=== PATIENT | female | born 1955 | race Caucasian/White ===

== ENCOUNTER 2018-02-14 20:55 | Inpatient (IN) | payer MEDICAID ==
[~2018-02-14] VITALS: Ht 154.9 cm; Wt 61.3 kg
[2018-02-14] MEDS ORDERED: IBUP-2070 PO (21:06)
[2018-02-14] MEDS ORDERED: CLIN300C3 PO (21:06)
[2018-02-14] MEDS ORDERED: CIPR-278 PO (21:06)
[2018-02-14] MEDS ORDERED: FAMO20 PO (21:06)
[2018-02-14 22:21] LABS: BASOPHILS % (AUTO) 0.8 % (0.0-2.0); EOSINOPHILS % (AUTO) 0 % (1.0-6.0); HEMOGLOBIN 11.6 g/dL (12.0-16.0); LYMPHOCYTES # (AUTO) 1.5 K/uL (1.0-4.8); LYMPHOCYTES % (AUTO) 11.9 % (22.0-44.0); MEAN CORPUSCULAR HEMOGLOBIN 29.2 pg (26.0-34.0); MEAN CORPUSCULAR HGB CONC 34.2 G/dL (31.0-37.0); MEAN CORPUSCULAR VOLUME 85 fL (80-100); MONOCYTES # (AUTO) 0.7 K/uL (0.1-1.0); MONOCYTES % (AUTO) 5.6 % (2.0-9.0); NEUTROPHILS % (AUTO) 81.7 % (40.0-70.0); PLATELET COUNT (AUTO) 257 K/uL (150-450); RED BLOOD CELL COUNT(AUTO) 3.98 MIL/uL (4.00-5.20); RED CELL DISTRIBUTION WIDTH 13.9 % (11.5-14.5)
[2018-02-14 22:41] LABS: ANION GAP 9 mmol/L (8-16); CALCIUM, TOTAL 8.3 mg/dL (8.8-10.5); CARBON DIOXIDE 26 mmol/L (22-29); CHLORIDE 100 mmol/L (98-107); CREATININE 0.58 mg/dL (0.60-1.30); GLOMERULAR FILTR. RATE CALC > 60 mL/min (>60); GLUCOSE,RANDOM 169 mg/dL (70-110); POTASSIUM 3.9 mmol/L (3.5-5.1); SODIUM SERUM 135 mmol/L (136-145); UREA NITROGEN, BLOOD 15 mg/dL (7-18)
[2018-02-14 22:53] LABS: ALANINE AMINOTRANSFERASE 26 U/L (12-78); ALKALINE PHOSPHATASE 83 U/L (46-116); ASPARTATE AMINOTRANSFERASE 17 U/L (15-37); BILIRUBIN,TOTAL 0.3 mg/dL (0.1-1.0); LIPASE 103 U/L (73-393)
[2018-02-14] MEDS ORDERED: ONDANSETRON HCL 4 MG/2 ML VIAL IVP ONE (23:00)
[2018-02-14] MEDS ORDERED: SODIUM CHLORIDE 0.9% 1,000 ML IV ONE (23:00)
[2018-02-14] MEDS ORDERED: FentaNYL CITRATE-PF 100 MCG/2 ML VIAL IVP ONE (23:00)
[2018-02-15] MEDS ORDERED: BUPIVACAINE HCL/PF 0.25% 10 ML VIAL INJ ONE
[2018-02-15] MEDS ORDERED: FentaNYL CITRATE-PF 100 MCG/2 ML VIAL IVP ONE (00:30)
[2018-02-15 01:16] LABS: GLUCOSE, CSF 60 mg/dL (50-80); TOTAL PROTEIN, CSF 72 mg/dL (15-45)
[2018-02-15 01:56] LABS: CSF TUBE NUMBER 1
[2018-02-15 01:57] LABS: APPEARANCE,CSF SL CLOUDY (CLEAR); APPEARANCE2,CSF SL CLOUDY (CLEAR); COLOR,CSF COLORLESS (COLORLESS); CSF 2ND TUBE NUMBER 4; RED BLOOD CELL1,CSF 448.8 CMM (0-0); WHITE BLOOD CELL1,CSF 827.5 CMM (0-5)
[2018-02-15 01:58] LABS: COLOR2,CSF COLORLESS (COLORLESS); RED BLOOD CELL2,CSF 393.8 CMM (0-0)
[2018-02-15] MEDS ORDERED: VANCOMYCIN HCL 1 GM/D5% WATER 200 ML IV ONE ×2 (02:15→08:45)
[2018-02-15] MEDS ORDERED: CefTRIAXone SODIUM 2 GM in DEXTROSE 5%-WATER 20 ML IV ONE (02:15)
[2018-02-15] MEDS ORDERED: DEXAMETHASONE SOD PHOS 4 MG/ML 5 ML VIAL IVP ONE (02:15)
[2018-02-15 02:26] LABS: LYMPHOCYTES1,CSF 38 %; LYMPHOCYTES2,CSF 41 %; MONOCYTES1,CSF 7 %; MONOCYTES2,CSF 10 %; NEUTROPHILS1,CSF 55 %; NEUTROPHILS2,CSF 49 %; OTHER CELLS,CSF 2ND 0
[2018-02-15] MEDS ORDERED: ONDANSETRON HCL 4 MG/2 ML VIAL IVP ONE ×2 (02:45)
[2018-02-15 02:59] LABS: APPEARANCE,URINE CLEAR (CLEAR); BILIRUBIN,URINE NEGATIVE (NEGATIVE); GLUCOSE, URINE (UA) NEGATIVE (NEGATIVE); KETONES,URINE NEGATIVE (NEGATIVE); LEUKOCYTE ESTERASE ,URINE TRACE (NEGATIVE); NITRATE,URINE NEGATIVE (NEGATIVE); OCCULT BLOOD,URINE SMALL (NEGATIVE); PROTEIN,URINE TRACE (NEGATIVE); UROBILINOGEN,URINE 0.2 mg/dL (<=1.0)
[2018-02-15 03:26] LABS: BACTERIA,URINE Moderate /HPF (None Seen); SQUAMOUS EPITHELIAL CELL,UR Few /LPF (None Seen)
[2018-02-15] MEDS ORDERED: WATER IV ONE (03:30)
[2018-02-15] MEDS ORDERED: DEXTROSE 5% IV ONE (03:30)
[2018-02-15] MEDS ORDERED: ACYCLOVIR IV ONE (03:30)
[2018-02-15] MEDS ORDERED: SODIUM CHLORIDE 0.9% 2,000 ML IV ONE (03:30)
[2018-02-15] MEDS ORDERED: ACETAMINOPHEN 500 MG TABLET PO ONE (03:45)
[2018-02-15] MEDS ORDERED: MORPHINE SULFATE 2 MG/ML SYRINGE IVP PRN (06:15)
[2018-02-15] MEDS ORDERED: HYDROCODONE/ACETAMINOPHEN 5-325 MG TABLET PO PRN (06:15)
[2018-02-15] MEDS ORDERED: BISACODYL 10 MG RECTAL RECTAL SUPPOSITORY PR PRN (06:15)
[2018-02-15] MEDS ORDERED: ZOLPIDEM TARTRATE 5 MG TABLET PO PRN (06:15)
[2018-02-15] MEDS ORDERED: MAGNESIUM HYDROXIDE SUSPENSION 30 ML UDCUP PO PRN (06:15)
[2018-02-15] MEDS ORDERED: ACETAMINOPHEN 325 MG TABLET PO PRN (06:15)
[2018-02-15 06:51] VITALS: BP 112/68
[2018-02-15 07:56] VITALS: BP 115/58
[2018-02-15] MEDS ORDERED: VANCOMYCIN HCL 500 MG in DEXTROSE 5%-WATER 100 ML IV ONE (08:30)
[2018-02-15] MEDS: HEPARIN SODIUM,PORCINE 5,000 UNITS/ML VIAL SQ SCH ×3 (08:35→23:47)
[2018-02-15] MEDS: PANTOPRAZOLE SODIUM 40 MG DR TABLET PO SCH (08:35)
[2018-02-15] MEDS: DOCUSATE SODIUM 100 MG CAPSULE PO SCH ×2 (08:35→19:49)
[2018-02-15] MEDS ORDERED: INFLUENZA VIRUS VACCINE QVS 2017-18 (3YR+)/PF 60 MCG/0.5 ML SYRINGE IM ONE (11:30)
[2018-02-15 12:07] VITALS: BP 103/53
[2018-02-15 16:03] VITALS: BP 130/67
[2018-02-15] MEDS ORDERED: WATER IV SCH (17:00)
[2018-02-15] MEDS ORDERED: DEXTROSE 5% IV SCH (17:00)
[2018-02-15] MEDS ORDERED: ACYCLOVIR IV SCH (17:00)
[2018-02-15] MEDS: VANCOMYCIN HCL 1.5 GM in DEXTROSE 5%-WATER 250 ML IV SCH (19:50)
[2018-02-15 20:39] VITALS: BP 120/62
[2018-02-15] MEDS ORDERED: CEFEPIME HCL 2 GM in DEXTROSE 5%-WATER 20 ML IV SCH (21:15)
[2018-02-15] MEDS ORDERED: CefTRIAXone SODIUM 2 GM in DEXTROSE 5%-WATER 20 ML IV SCH (21:15)
[2018-02-15] MEDS: DEXAMETHASONE SOD PHOS 4 MG/ML VIAL IVP SCH ×2 (23:11→23:50)
[2018-02-16] VITALS (7 sets, daily range): BP systolic 115–130; BP diastolic 55–78
[2018-02-16] MEDS ORDERED: ACYCLOVIR 600 MG in DEXTROSE 5%-WATER 100 ML IV SCH ×2
[2018-02-16] MEDS: MetroNIDAZOLE 500 MG/NACL 100 ML IV SCH ×4 (00:17→17:38)
[2018-02-16] MEDS ORDERED: CefTRIAXone SODIUM 1 GM in DEXTROSE 5%-WATER 10 ML IV SCH (03:00)
[2018-02-16] MEDS: DEXAMETHASONE SOD PHOS 4 MG/ML VIAL IVP SCH ×2 (05:50→13:36)
[2018-02-16 06:17] LABS: ANION GAP 10 mmol/L (8-16); CALCIUM, TOTAL 8.4 mg/dL (8.8-10.5); CARBON DIOXIDE 24 mmol/L (22-29); CHLORIDE 104 mmol/L (98-107); CREATININE 0.59 mg/dL (0.60-1.30); GLOMERULAR FILTR. RATE CALC > 60 mL/min (>60); GLUCOSE,RANDOM 204 mg/dL (70-110); SODIUM SERUM 138 mmol/L (136-145); UREA NITROGEN, BLOOD 11 mg/dL (7-18)
[2018-02-16 06:20] LABS: BASOPHILS % (AUTO) 0.5 % (0.0-2.0); EOSINOPHILS % (AUTO) 0 % (1.0-6.0); HEMATOCRIT 34.5 % (36-46); HEMOGLOBIN 11.7 g/dL (12.0-16.0); LYMPHOCYTES # (AUTO) 1.3 K/uL (1.0-4.8); LYMPHOCYTES % (AUTO) 11.8 % (22.0-44.0); MEAN CORPUSCULAR HGB CONC 33.9 G/dL (31.0-37.0); MEAN CORPUSCULAR VOLUME 86 fL (80-100); MONOCYTES # (AUTO) 0.2 K/uL (0.1-1.0); MONOCYTES % (AUTO) 2.2 % (2.0-9.0); NEUTROPHILS # (AUTO) 9.2 K/uL (1.8-7.7); PLATELET COUNT (AUTO) 290 K/uL (150-450); RED BLOOD CELL COUNT(AUTO) 4.03 MIL/uL (4.00-5.20); RED CELL DISTRIBUTION WIDTH 13.9 % (11.5-14.5)
[2018-02-16 06:50] LABS: NEUTROPHILS % (AUTO) 85.5 % (40.0-70.0)
[2018-02-16] MEDS: CefTAZidime PENTAHYDRATE 2 GM in DEXTROSE 5%-WATER 50 ML IV SCH ×3 (06:59→23:07)
[2018-02-16] MEDS ORDERED: GADOBUTROL 1 MMOL/ML 10 ML VIAL IVP ONE (08:38)
[2018-02-16] MEDS: VANCOMYCIN HCL 1.5 GM in DEXTROSE 5%-WATER 250 ML IV SCH ×2 (09:12→20:21)
[2018-02-16] MEDS: PANTOPRAZOLE SODIUM 40 MG DR TABLET PO SCH (09:13)
[2018-02-16] MEDS: HEPARIN SODIUM,PORCINE 5,000 UNITS/ML VIAL SQ SCH ×2 (09:13→16:27)
[2018-02-16] MEDS: DOCUSATE SODIUM 100 MG CAPSULE PO SCH ×2 (09:13→20:22)
[2018-02-17] MEDS: HEPARIN SODIUM,PORCINE 5,000 UNITS/ML VIAL SQ SCH ×4 (00:28→23:40)
[2018-02-17] MEDS: MetroNIDAZOLE 500 MG/NACL 100 ML IV SCH ×5 (00:28→23:36)
[2018-02-17 04:46] VITALS: BP 135/65
[2018-02-17 06:50] LABS: BASOPHILS % (AUTO) 0.4 % (0.0-2.0); EOSINOPHILS % (AUTO) 0.1 % (1.0-6.0); HEMATOCRIT 33.5 % (36-46); HEMOGLOBIN 11.4 g/dL (12.0-16.0); LYMPHOCYTES # (AUTO) 2.5 K/uL (1.0-4.8); LYMPHOCYTES % (AUTO) 20.1 % (22.0-44.0); MEAN CORPUSCULAR HEMOGLOBIN 29.2 pg (26.0-34.0); MEAN CORPUSCULAR HGB CONC 34.1 G/dL (31.0-37.0); MEAN CORPUSCULAR VOLUME 86 fL (80-100); MONOCYTES # (AUTO) 0.9 K/uL (0.1-1.0); MONOCYTES % (AUTO) 6.9 % (2.0-9.0); NEUTROPHILS % (AUTO) 72.5 % (40.0-70.0); PLATELET COUNT (AUTO) 333 K/uL (150-450); RED BLOOD CELL COUNT(AUTO) 3.91 MIL/uL (4.00-5.20); RED CELL DISTRIBUTION WIDTH 13.5 % (11.5-14.5)
[2018-02-17 07:03] LABS: ANION GAP 9 mmol/L (8-16); CALCIUM, TOTAL 8.5 mg/dL (8.8-10.5); CARBON DIOXIDE 26 mmol/L (22-29); CHLORIDE 103 mmol/L (98-107); GLOMERULAR FILTR. RATE CALC > 60 mL/min (>60); GLUCOSE,RANDOM 179 mg/dL (70-110); POTASSIUM 3.7 mmol/L (3.5-5.1); SODIUM SERUM 138 mmol/L (136-145); UREA NITROGEN, BLOOD 14 mg/dL (7-18); VANCOMYCIN,RANDOM 14.5 mcg/mL (25.0-50.0)
[2018-02-17] MEDS: CefTAZidime PENTAHYDRATE 2 GM in DEXTROSE 5%-WATER 50 ML IV SCH ×3 (07:14→22:34)
[2018-02-17 07:54] VITALS: BP 128/63
[2018-02-17] MEDS: PANTOPRAZOLE SODIUM 40 MG DR TABLET PO SCH (08:17)
[2018-02-17] MEDS: DOCUSATE SODIUM 100 MG CAPSULE PO SCH ×2 (08:24→20:35)
[2018-02-17] MEDS ORDERED: VANCOMYCIN HCL 1.5 GM in DEXTROSE 5%-WATER 250 ML IV ONE (10:00)
[2018-02-17] MEDS ORDERED: SODIUM CHLORIDE 0.9% 250 ML IV ONE (10:52)
[2018-02-17 11:00] VITALS: BP 124/62
[2018-02-17 15:55] VITALS: BP 122/63
[2018-02-17] MEDS: ONDANSETRON HCL 4 MG/2 ML VIAL IVP PRN (18:25)
[2018-02-17] MEDS: VANCOMYCIN HCL 1.5 GM in DEXTROSE 5%-WATER 250 ML IV SCH (19:39)
[2018-02-17 19:48] VITALS: BP 125/78
[2018-02-17 23:30] VITALS: BP 120/73
[2018-02-18] MEDS: VANCOMYCIN HCL 1.5 GM in DEXTROSE 5%-WATER 250 ML IV SCH ×3 (00:32→15:28)
[2018-02-18] MEDS: MetroNIDAZOLE 500 MG/NACL 100 ML IV SCH ×4 (05:23→23:52)
[2018-02-18 05:39] VITALS: BP 124/53
[2018-02-18] MEDS: ONDANSETRON HCL 4 MG/2 ML VIAL IVP PRN (06:13)
[2018-02-18] MEDS: CefTAZidime PENTAHYDRATE 2 GM in DEXTROSE 5%-WATER 50 ML IV SCH ×3 (06:41→23:07)
[2018-02-18 06:45] LABS: EOSINOPHILS % (AUTO) 0.9 % (1.0-6.0); HEMATOCRIT 38.5 % (36-46); HEMOGLOBIN 12.8 g/dL (12.0-16.0); LYMPHOCYTES # (AUTO) 4.1 K/uL (1.0-4.8); LYMPHOCYTES % (AUTO) 42.7 % (22.0-44.0); MEAN CORPUSCULAR HEMOGLOBIN 28.6 pg (26.0-34.0); MEAN CORPUSCULAR HGB CONC 33.4 G/dL (31.0-37.0); MEAN CORPUSCULAR VOLUME 86 fL (80-100); MONOCYTES # (AUTO) 0.7 K/uL (0.1-1.0); MONOCYTES % (AUTO) 7.2 % (2.0-9.0); NEUTROPHILS # (AUTO) 4.6 K/uL (1.8-7.7); NEUTROPHILS % (AUTO) 48.2 % (40.0-70.0); PLATELET COUNT (AUTO) 384 K/uL (150-450); RED CELL DISTRIBUTION WIDTH 13.8 % (11.5-14.5)
[2018-02-18 07:11] LABS: ANION GAP 11 mmol/L (8-16); CALCIUM, TOTAL 8.6 mg/dL (8.8-10.5); CARBON DIOXIDE 28 mmol/L (22-29); CHLORIDE 99 mmol/L (98-107); CREATININE 0.62 mg/dL (0.60-1.30); GLOMERULAR FILTR. RATE CALC > 60 mL/min (>60); GLUCOSE,RANDOM 128 mg/dL (70-110); POTASSIUM 3.1 mmol/L (3.5-5.1); SODIUM SERUM 138 mmol/L (136-145); UREA NITROGEN, BLOOD 11 mg/dL (7-18)
[2018-02-18] MEDS: HEPARIN SODIUM,PORCINE 5,000 UNITS/ML VIAL SQ SCH ×2 (08:06→15:28)
[2018-02-18] MEDS: DOCUSATE SODIUM 100 MG CAPSULE PO SCH ×2 (08:07→20:16)
[2018-02-18] MEDS: PANTOPRAZOLE SODIUM 40 MG DR TABLET PO SCH (08:07)
[2018-02-18 10:10] LABS: ORGANISM ID Not indicated.; S PNEUMO SOURCE Urine; STREP PNEUMONIAE AG URINE Negative (Negative); STREP.PNEUMO BODY FLUID CULT. Not Indicated
[2018-02-18] MEDS ORDERED: POTASSIUM CHL 10 MEQ/WATER 50 ML IV PRN (11:45)
[2018-02-18] MEDS ORDERED: POTASSIUM CHLORIDE 20 MEQ ER TABLET PO PRN (11:45)
[2018-02-18 16:15] VITALS: BP 118/57
[2018-02-18 17:16] LABS: HERPES SIMPLEX VIRUS-1 BY PCR Negative (Negative); HERPES SIMPLEX VIRUS-2 BY PCR Negative (Negative)
[2018-02-18 19:05] VITALS: BP 109/57
[2018-02-18 23:35] VITALS: BP 112/51
[2018-02-18] MEDS ORDERED: SODIUM CHLORIDE 0.9% 500 ML IV ONE (23:49)
[2018-02-19] MEDS: HEPARIN SODIUM,PORCINE 5,000 UNITS/ML VIAL SQ SCH ×4 (00:08→23:19)
[2018-02-19] MEDS: VANCOMYCIN HCL 1.5 GM in DEXTROSE 5%-WATER 250 ML IV SCH ×2 (01:03→07:54)
[2018-02-19 03:40] VITALS: BP 119/54
[2018-02-19] MEDS: MetroNIDAZOLE 500 MG/NACL 100 ML IV SCH ×4 (05:44→23:19)
[2018-02-19 06:07] LABS: ANION GAP 10 mmol/L (8-16); CALCIUM, TOTAL 8.3 mg/dL (8.8-10.5); CARBON DIOXIDE 26 mmol/L (22-29); CHLORIDE 99 mmol/L (98-107); CREATININE 0.78 mg/dL (0.60-1.30); GLOMERULAR FILTR. RATE CALC > 60 mL/min (>60); GLUCOSE,RANDOM 159 mg/dL (70-110); POTASSIUM 3.5 mmol/L (3.5-5.1); SODIUM SERUM 135 mmol/L (136-145); UREA NITROGEN, BLOOD 12 mg/dL (7-18); VANCOMYCIN,RANDOM 43.9 mcg/mL (25.0-50.0)
[2018-02-19] MEDS: CefTAZidime PENTAHYDRATE 2 GM in DEXTROSE 5%-WATER 50 ML IV SCH ×3 (06:27→22:36)
[2018-02-19 07:00] VITALS: BP 120/71
[2018-02-19] MEDS: PANTOPRAZOLE SODIUM 40 MG DR TABLET PO SCH (07:54)
[2018-02-19] MEDS: DOCUSATE SODIUM 100 MG CAPSULE PO SCH ×2 (07:54→20:04)
[2018-02-19 11:38] VITALS: BP 132/73
[2018-02-19 15:00] VITALS: BP 115/86
[2018-02-19] MEDS: ONDANSETRON HCL 4 MG/2 ML VIAL IVP PRN (18:11)
[2018-02-19 19:58] VITALS: BP 131/75
[2018-02-20] VITALS (7 sets, daily range): BP systolic 108–141; BP diastolic 63–72
[2018-02-20] MEDS: VANCOMYCIN HCL 750 MG in DEXTROSE 5%-WATER 150 ML IV SCH ×3 (00:45→17:08)
[2018-02-20] MEDS: MetroNIDAZOLE 500 MG/NACL 100 ML IV SCH ×2 (05:21→11:20)
[2018-02-20 06:20] LABS: CALCIUM, TOTAL 8.5 mg/dL (8.8-10.5); CREATININE 0.97 mg/dL (0.60-1.30); POTASSIUM 3.6 mmol/L (3.5-5.1)
[2018-02-20] MEDS: CefTAZidime PENTAHYDRATE 2 GM in DEXTROSE 5%-WATER 50 ML IV SCH ×3 (06:29→22:39)
[2018-02-20] MEDS: DOCUSATE SODIUM 100 MG CAPSULE PO SCH ×2 (08:07→20:20)
[2018-02-20] MEDS: PANTOPRAZOLE SODIUM 40 MG DR TABLET PO SCH (08:07)
[2018-02-20] MEDS: HEPARIN SODIUM,PORCINE 5,000 UNITS/ML VIAL SQ SCH ×2 (08:10→17:09)
[2018-02-20] MEDS ORDERED: MORPHINE SULFATE 4 MG/ML SYRINGE IVP PRN (17:30)
[2018-02-20] MEDS: MetroNIDAZOLE 500 MG TABLET PO SCH (18:46)
[2018-02-21] MEDS: HEPARIN SODIUM,PORCINE 5,000 UNITS/ML VIAL SQ SCH ×4 (00:20→23:16)
[2018-02-21] MEDS: MetroNIDAZOLE 500 MG TABLET PO SCH ×5 (00:20→23:16)
[2018-02-21] MEDS: VANCOMYCIN HCL 750 MG in DEXTROSE 5%-WATER 150 ML IV SCH ×2 (00:21→08:57)
[2018-02-21 03:30] VITALS: BP 137/69
[2018-02-21] MEDS: CefTAZidime PENTAHYDRATE 2 GM in DEXTROSE 5%-WATER 50 ML IV SCH ×3 (05:40→23:16)
[2018-02-21 06:17] LABS: CALCIUM, TOTAL 8.2 mg/dL (8.8-10.5); CREATININE 0.97 mg/dL (0.60-1.30); POTASSIUM 3.6 mmol/L (3.5-5.1)
[2018-02-21 07:18] VITALS: BP 127/60
[2018-02-21] MEDS: PANTOPRAZOLE SODIUM 40 MG DR TABLET PO SCH (08:57)
[2018-02-21] MEDS: DOCUSATE SODIUM 100 MG CAPSULE PO SCH ×2 (08:57→20:11)
[2018-02-21 11:32] VITALS: BP 127/58
[2018-02-21 15:22] VITALS: BP 143/75
[2018-02-21 20:00] VITALS: BP 153/83
[2018-02-21] MEDS ORDERED: VANCOMYCIN HCL 1 GM/D5% WATER 200 ML IV SCH (20:00)
[2018-02-21] MEDS: VANCOMYCIN HCL 1.25 GM in DEXTROSE 5%-WATER 250 ML IV SCH (20:11)
[2018-02-21 23:30] VITALS: BP 144/72
[2018-02-22 05:15] VITALS: BP 130/70
[2018-02-22] MEDS: CefTAZidime PENTAHYDRATE 2 GM in DEXTROSE 5%-WATER 50 ML IV SCH (05:54)
[2018-02-22] MEDS: MetroNIDAZOLE 500 MG TABLET PO SCH ×3 (05:54→16:40)
[2018-02-22 07:39] VITALS: BP 115/69
[2018-02-22] MEDS: PANTOPRAZOLE SODIUM 40 MG DR TABLET PO SCH (07:58)
[2018-02-22] MEDS: DOCUSATE SODIUM 100 MG CAPSULE PO SCH (07:58)
[2018-02-22] MEDS: HEPARIN SODIUM,PORCINE 5,000 UNITS/ML VIAL SQ SCH ×2 (07:59→15:34)
[2018-02-22] MEDS: VANCOMYCIN HCL 1.25 GM in DEXTROSE 5%-WATER 250 ML IV SCH ×2 (08:21→16:40)
[2018-02-22 08:35] LABS: CALCIUM, TOTAL 8.5 mg/dL (8.8-10.5); CREATININE 1.04 mg/dL (0.60-1.30); POTASSIUM 3.5 mmol/L (3.5-5.1); VANCOMYCIN,RANDOM 23.8 mcg/mL (25.0-50.0)
[2018-02-22 11:44] VITALS: BP 146/76
[2018-02-22] MEDS ORDERED: CefTRIAXone SODIUM 2 GM in DEXTROSE 5%-WATER 20 ML IV SCH (14:15)
[2018-02-22 15:57] VITALS: BP 123/61
== END 2018-02-22 18:35 | DRG 49 ==
LOC: EMS 20:59 → 4E 02-15 05:52 → 6N 02-17 06:53 → 4E 02-17 07:21 → 6N 02-17 11:36
PROVIDERS: ADMIT Internal Medicine; ATTEND Internal Medicine
DX: G00.9 Bacterial meningitis, unspecified (principal); E44.0 Moderate protein-calorie malnutrition; E87.1 Hypo-osmolality and hyponatremia; H70.92 Unspecified mastoiditis, left ear; D64.9 Anemia, unspecified; H66.92 Otitis media, unspecified, left ear; Z79.891 Long term (current) use of opiate analgesic; Z79.82 Long term (current) use of aspirin; Z79.899 Other long term (current) drug therapy; Z68.25 Body mass index [BMI] 25.0-25.9, adult
CPT/HCPCS: 62270; 70450; 70553; 82945; 83036; 83605; 84132; 84145; 84157; 86403; 86592; 87040; 87070; 87086; 87205; 87210; 87529; 87899; 89051; 90471; 93005; 96365; 96366; 96368; 96375; 96376; 99291; A9585; J0133; J0692; J0696; J0713; J1100; J1644; J2405; J3010; J3370; J3490; J7030; J7040; J7050; J7060

== ENCOUNTER 2018-03-27 13:44 | Emergency (ER) | payer MEDICAID ==
[~2018-03-27] VITALS: Ht 149.9 cm; Wt 54.5 kg
[~2018-03-27 13:44] MED LIST: CIPR-278 PO; CLIN300C3 PO; FAMO20 PO; IBUP-2070 PO
[2018-03-27] MEDS ORDERED: 0.9% SODIUM CHLORIDE 10 ML SYRINGE IVP PRN (14:45)
[2018-03-27 15:35] LABS: BASOPHILS % (AUTO) 0.5 % (0.0-2.0); EOSINOPHILS % (AUTO) 1.3 % (1.0-6.0); HEMATOCRIT 38.3 % (36-46); LYMPHOCYTES # (AUTO) 2.2 K/uL (1.0-4.8); LYMPHOCYTES % (AUTO) 17.6 % (22.0-44.0); MEAN CORPUSCULAR HEMOGLOBIN 28.8 pg (26.0-34.0); MEAN CORPUSCULAR HGB CONC 33.9 G/dL (31.0-37.0); MEAN CORPUSCULAR VOLUME 85 fL (80-100); MONOCYTES # (AUTO) 0.8 K/uL (0.1-1.0); NEUTROPHILS # (AUTO) 9.5 K/uL (1.8-7.7); NEUTROPHILS % (AUTO) 74.6 % (40.0-70.0); PLATELET COUNT (AUTO) 239 K/uL (150-450); RED CELL DISTRIBUTION WIDTH 13.9 % (11.5-14.5)
[2018-03-27 15:44] LABS: APPEARANCE,URINE CLOUDY (CLEAR); BILIRUBIN,URINE NEGATIVE (NEGATIVE); GLUCOSE, URINE (UA) NEGATIVE (NEGATIVE); KETONES,URINE NEGATIVE (NEGATIVE); LEUKOCYTE ESTERASE ,URINE LARGE (NEGATIVE); NITRATE,URINE NEGATIVE (NEGATIVE); OCCULT BLOOD,URINE LARGE (NEGATIVE); PH,URINE 7.5 (5.0-8.0); PROTEIN,URINE TRACE (NEGATIVE); UROBILINOGEN,URINE 0.2 mg/dL (<=1.0)
[2018-03-27 15:48] LABS: INR 0.9 (0.9-1.1); PROTHROMBIN TIME 9.6 SEC (9.4-11.6)
[2018-03-27 15:49] LABS: ANION GAP 11 mmol/L (8-16); CALCIUM, TOTAL 8.9 mg/dL (8.8-10.5); CARBON DIOXIDE 27 mmol/L (22-29); CHLORIDE 100 mmol/L (98-107); CREATININE 0.88 mg/dL (0.60-1.30); GLOMERULAR FILTR. RATE CALC > 60 mL/min (>60); GLUCOSE,RANDOM 114 mg/dL (70-110); POTASSIUM 3.5 mmol/L (3.5-5.1); SODIUM SERUM 138 mmol/L (136-145); UREA NITROGEN, BLOOD 13 mg/dL (7-18)
[2018-03-27 15:55] LABS: ALANINE AMINOTRANSFERASE 34 U/L (12-78); ALBUMIN 3.8 g/dL (3.4-5.0); ALKALINE PHOSPHATASE 105 U/L (46-116); ASPARTATE AMINOTRANSFERASE 25 U/L (15-37); BILIRUBIN,TOTAL 0.3 mg/dL (0.1-1.0)
[2018-03-27 16:33] LABS: BACTERIA,URINE Few /HPF (None Seen); SQUAMOUS EPITHELIAL CELL,UR Rare /LPF (None Seen)
[2018-03-27] MEDS ORDERED: VANCOMYCIN HCL 1 GM/D5% WATER 200 ML IV ONE (16:45)
[2018-03-27] MEDS ORDERED: PIPERACILLIN/TAZO 3.375 GM/D5W 50 ML IV ONE (16:45)
[2018-03-27] MEDS ORDERED: KETOROLAC TROMETHAMINE 30 MG/ML VIAL IVP ONE (18:00)
[2018-03-27 21:35] VITALS: BP 126/77
== END 2018-03-27 21:35 | disposition short-term general hospital (02) ==
LOC: EMS 13:45
DX: H70.92 Unspecified mastoiditis, left ear (principal); R51 Headache
CPT/HCPCS: 36415; 70450; 80053; 81001; 85025; 85610; 85730; 87086; 93005; 96365; 96366; 96368; 96375; 99285; J1885; J2543; J3370